=== PATIENT | female | born 1960 | race Caucasian/White ===

== ENCOUNTER → 2018-06-04 | Outpatient (CLI) | payer OTHER ==
[~2018-06-04] MED LIST: 00186-0372-20 IH; ALBUTEROL1.25 MG/3 IH; BACTRIM DS 8001 TAB PO; GUAIFEN/CODEIN120 ML PO; LEVAQUIN 5500 MG/TA1 PO; LEVAQUIN 750MG750 M1 PO; MUCINEX 60600 MG/TA1 PO; NORCO 325 MG-51 TAB PO; PREDNISONE10 MG PO; PREDNISONE20 MG PO; PROMETHAZINE V473 M2 PO; TESSALON PERLE200 MG PO; ZITHROMAX Z PA250 MG PO
== END ==
LOC: MC.RAD 09:20
DX: Z12.31 Encounter for screening mammogram for malignant neoplasm of breast (principal)

== ENCOUNTER 2019-01-29 06:09 | Day surgery (SDC) | payer OTHER ==
[~2019-01-29] VITALS: Ht 165.1 cm; Wt 65.5 kg
[2019-01-29 06:42] VITALS: BP 121/78; PULSE 76; TEMP 97.9
[2019-01-29 07:40] VITALS: BP 100/68; PULSE 64; TEMP 97.7
--- NOTE | 2019-01-29 07:40 | NUR ---
Patient returned to [facility]. Alert and oriented ambulated to chair without difficulty. Vital signs stable. Denies any pain or nausea. States she would like a water and muffin. Tolerating well. Call craig within reach, will continue to monitor.
[2019-01-29 07:55] VITALS: BP 99/65; PULSE 69
--- NOTE | 2019-01-29 07:55 | NUR ---
Patient tolerated food and drink without difficulty. Denies nausea. Will continue to monitor
[2019-01-29 08:10] VITALS: BP 104/71; PULSE 66
--- NOTE | 2019-01-29 08:20 | NUR ---
Discharge instructions reviewed with patient, verbalized understanding. IV removed, tolerated well. Patient to get dressed at this time.
--- NOTE | 2019-01-29 08:28 | NUR ---
Patient wheeled down to lobby via wheel chair. Patients picked up patient out front to be driven home.
[2019-01-29 14:21] VITALS: BP 93/66; PULSE 69
== END 2019-01-29 08:28 | disposition home or self-care (01) ==
LOC: SDCO 06:09
DX: Z12.11 Encounter for screening for malignant neoplasm of colon (principal); Z86.010 Personal history of colon polyps
CPT/HCPCS: J2250; J3010; J7030

== ENCOUNTER → 2021-06-01 | Outpatient (CLI) | payer OTHER | LOC: MC.RAD 13:01 | DX: Z12.31 Encounter for screening mammogram for malignant neoplasm of breast (principal) ==

== ENCOUNTER → 2022-08-15 | Outpatient (CLI) | payer OTHER | LOC: MC.RAD 13:36 | DX: Z12.31 Encounter for screening mammogram for malignant neoplasm of breast (principal) ==